=== PATIENT | female | born 1945 | race Caucasian/White ===

== ENCOUNTER 2018-04-02 12:14 | Inpatient (IN) | payer OTHER ==
[~2018-04-02] VITALS: Ht 157.5 cm; Wt 68.4 kg
[~2018-04-02 12:14] MED LIST: CORAL CALCIUM1 EACH PO; IRON325 MG PO; QUINAPRIL-HCTZ1 EAC2 PO; VITAMIN B-122500 MCG SL
[2018-04-02 13:07] LABS: HEMATOCRIT 45.4 % (36.0-46.0); HEMOGLOBIN 15.7 G/DL (11.9-15.5); MCH 30.5 PG (29.0-34.0); MCHC 34.6 G/DL (30.0-36.0); MCV 88.3 FL (83-99); PLATELET COUNT 304 K/uL (156-360); RBC DIS.WIDTH-CV 12.6 % (11.8-14.6); RBC DIS.WIDTH-SD 41.1 % (39-53); RED BLOOD COUNT 5.14 M/uL (3.80-5.20); WHITE BLOOD COUNT 13.8 K/uL (4.1-10.2)
[2018-04-02 13:20] LABS: ALBUMIN 4.1 g/dL (3.2-4.8); CHLORIDE 104 mEq/L (99-109); POTASSIUM 4.2 mEq/L (3.7-5.4); SODIUM 141 mEq/L (136-147)
[2018-04-02 13:23] LABS: GLUCOSE 137 mg/dL (70-99); TOTAL PROTEIN 7.4 g/dL (6.4-8.3)
[2018-04-02 13:25] LABS: TOTAL BILIRUBIN 0.7 mg/dL (0.0-1.0)
[2018-04-02 13:26] LABS: ALKALINE PHOSPHATASE 82 IU/L (3-129); CREATININE 0.9 mg/dL (0.6-1.3); GFR ESTIMATE (CALCULATED) > 59 mL/min/
[2018-04-02 13:27] LABS: UREA NITROGEN (BUN) 12 mg/dL (9-23)
[2018-04-02 13:28] LABS: AST (GOT) 27 IU/L (2-34)
[2018-04-02 13:29] LABS: ALT (GPT) 28 IU/L (3-49)
[2018-04-02 13:30] LABS: LIPASE 63 U/L (1.0-51.0)
[2018-04-02 14:15] LABS: APPEARANCE CLEAR ((CLEAR)); BILIRUBIN NEGATIVE; BLOOD NEGATIVE; COLOR AMBER ((YELLOW)); GLUCOSE (STRIP) NEGATIVE; KETONES 20; LEUKOCYTES TRACE; NITRITE NEGATIVE; PROTEIN (STRIP) 30; SPECIFIC GRAVITY 1.021 (1.000-1.030); UROBILINOGEN 0.2 MG/DL (0.2-1.0)
[2018-04-02 14:25] LABS: BACTERIA RARE /HPF; EPITHELIAL CELLS RARE /HPF; MUCUS 1+ /LPF; RED BLOOD CELLS 0-5 /HPF (0-5); UCUL ADDED? YES
[2018-04-02 14:30] LABS: TROP-I INTERPRETATION NEGATIVE; TROPONIN-I < 0.01 ng/mL (0.0-0.30)
[2018-04-02] MEDS ORDERED: FISH OIL 1,0001 EAC7 PO (17:24)
[2018-04-02] MEDS ORDERED: VITAMIN D31000 UNIT PO (17:24)
[2018-04-02] MEDS ORDERED: ADULT ASPIRIN R81 MG PO (17:24)
[2018-04-02 22:37] VITALS: BP 176/74
[2018-04-03 06:11] LABS: HEMATOCRIT 37.3 % (36.0-46.0); HEMOGLOBIN 12.9 G/DL (11.9-15.5); MCH 30.6 PG (29.0-34.0); MCHC 34.6 G/DL (30.0-36.0); MCV 88.6 FL (83-99); PLATELET COUNT 252 K/uL (156-360); RBC DIS.WIDTH-CV 12.9 % (11.8-14.6); RBC DIS.WIDTH-SD 41.7 % (39-53); RED BLOOD COUNT 4.21 M/uL (3.80-5.20); WHITE BLOOD COUNT 7.6 K/uL (4.1-10.2)
[2018-04-03 06:24] LABS: CHLORIDE 107 mEq/L (99-109); POTASSIUM 3.7 mEq/L (3.7-5.4); SODIUM 143 mEq/L (136-147)
[2018-04-03 06:25] LABS: GLUCOSE 118 mg/dL (70-99)
[2018-04-03 06:29] LABS: CREATININE 0.8 mg/dL (0.6-1.3); GFR ESTIMATE (CALCULATED) > 59 mL/min/
[2018-04-03 06:30] LABS: UREA NITROGEN (BUN) 16 mg/dL (9-23)
[2018-04-03 07:10] VITALS: BP 128/70
[2018-04-03 16:05] VITALS: BP 176/79
[2018-04-03 22:46] VITALS: BP 176/79
[2018-04-04 07:15] VITALS: BP 162/79
== END 2018-04-04 12:38 | disposition home or self-care (01) | DRG 390 ==
LOC: EME 12:14 → EDOF 18:16 → ENRESERV 21:59 → 5EAST 22:29
PROVIDERS: Surgery
DX: K56.699 Other intestinal obstruction unspecified as to partial versus complete obstruction (principal); Z90.710 Acquired absence of both cervix and uterus; Z85.42 Personal history of malignant neoplasm of other parts of uterus; Y84.2 Radiological procedure and radiotherapy as the cause of abnormal reaction of the patient, or of later complication, without mention of misadventure at the time of the procedure; I10 Essential (primary) hypertension; D72.829 Elevated white blood cell count, unspecified; K21.9 Gastro-esophageal reflux disease without esophagitis
CPT/HCPCS: 71045; 71046; 74177; 80048; 80053; 81003; 83690; 84484; 85027; 87086; 93005; 99281; 99285; J1650; J2405